=== PATIENT | female | born 1970 | race Caucasian/White ===

== ENCOUNTER 2017-10-28 09:52 | Outpatient (CLI) | payer OTHER | END 2017-10-28 12:21 | disposition home or self-care (01) | LOC: SONOGRAMA 09:52 | DX: E04.1 Nontoxic single thyroid nodule (principal) ==

== ENCOUNTER 2021-05-20 15:47 | Emergency (ER) | payer OTHER ==
[~2021-05-20] VITALS: Ht 154.9 cm; Wt 80.7 kg
[2021-05-20] MEDS ORDERED: VALACYCLOVIR1000 MG PO (22:15)
[2021-05-20] MEDS ORDERED: MEDROLPACK PO (22:15)
[2021-05-20] MEDS ORDERED: TRIAMCINOLONE A15 G4 TOP (22:15)
[2021-05-20] MEDS ORDERED: CEPHALEXIN500 M1 PO (22:15)
== END 2021-05-20 23:05 ==
LOC: ER 15:47
DX: R21 Rash and other nonspecific skin eruption (principal); H60.8X1 Other otitis externa, right ear